=== PATIENT | male | born 1995 | race Asian ===

== ENCOUNTER 2017-05-04 10:06 | Outpatient (CLI) | payer OTHER | END 2017-05-04 10:07 | disposition home or self-care (01) | LOC: SC 10:06 | PROVIDERS: ATTEND Internal Medicine Pulmonary Disease | DX: G47.33 Obstructive sleep apnea (adult) (pediatric) (principal); G47.10 Hypersomnia, unspecified; R06.83 Snoring | CPT/HCPCS: 99203; 99212 ==

== ENCOUNTER 2018-05-03 13:18 | Outpatient (CLI) | payer OTHER | END 2018-05-03 13:19 | disposition home or self-care (01) | LOC: SC 13:18 | PROVIDERS: ATTEND Internal Medicine Pulmonary Disease | DX: R06.81 Apnea, not elsewhere classified (principal); R41.89 Other symptoms and signs involving cognitive functions and awareness; G47.10 Hypersomnia, unspecified; R06.83 Snoring | CPT/HCPCS: 99212; 99213 ==

== ENCOUNTER 2018-06-10 19:32 | Outpatient (CLI) | payer OTHER | END 2018-06-10 19:33 | disposition home or self-care (01) | LOC: SC 19:32 | PROVIDERS: ATTEND Internal Medicine Pulmonary Disease | DX: G47.33 Obstructive sleep apnea (adult) (pediatric) (principal) | CPT/HCPCS: 95810 ==

== ENCOUNTER 2018-08-23 10:21 | Outpatient (CLI) | payer OTHER | END 2018-08-23 10:22 | disposition home or self-care (01) | LOC: SC 10:21 | PROVIDERS: ATTEND Internal Medicine Pulmonary Disease | DX: G47.33 Obstructive sleep apnea (adult) (pediatric) (principal) | CPT/HCPCS: 99212; 99213 ==

== ENCOUNTER 2019-05-16 10:22 | Outpatient (CLI) | payer OTHER ==
--- NOTE | 2019-05-16 11:29 | SLEEP CARE CONSULTATION ---
Information from patient questionnaire entered by Beth Aguayo. I have reviewed and concur with the information entered by Beth Aguayo. This document represents the service I personally performed and the decisions made by me, Edgardo Blount MD, [facility]. History of Present Illness Previous diagnosis: Mild, Obstructive Sleep Apnea-Hypopnea Syndrome AHI: 6.0 Reason for follow up: first compliance Equipment type: CPAP Equipment obtained from: [place] Mask style: Nasal Prior sleep studies: Yes HPI additional information: HPI: Mr. Sosa returned today for follow up of nasal CPAP therapy. He was diagnosed to have mild obstructive sleep apnea-hypopnea syndrome. The patient wears a Respironics DreamWear nasal cushion mask. He reports using the device nightly and all through the night. The compliance report between 12/19 and 01/17/2019 shows usage in 23 nights out of the past 30 nights, 5.6 hours a night. The > 4 hour compliance rate for the past 30 days is 76.6%. He complained of no particular problem with the device such as soreness on the face, dry nose, epistaxis, nasal congestion or headache. He thinks that the pressure of 4 8 cmH2O is comfortable. On the CPAP therapy he notices improvement in his sleep quality, and that he wakes up feeling fresher in the morning and more awake/alert during the day. Almond Sleepiness Scale score is 15. The average residual AHI is 2.2; and average time in large leak per day is 26 seconds. The 90th percentile pressure is 7.0 cmH2O. CPAP Compliance Data - Data Reviewed with Patient Average duration of nightly device use: 3h 15m Compliance rate %: 46.7 Current pressure setting (cmH2O): 4-8 Humidity settin Heated hose settin Average residual AHI: 2.1 Average large leak: 16s Subjective Patient concerns: reports: aerophagia, dry mouth, nose, throat Initial Almond Sleepiness Scale score: 13 Current Almond Sleepiness Scale score: 15 Allergies and Home Medications Drug allergies reviewed: Yes Home medication list reviewed: Yes Review of Systems Review of systems same as previous: Yes Physical Exam Weight: 153 lb Weight change since last visit: +6 Impression and Plan IMPRESSION: 1. Obstructive Sleep Apnea-Hypopnea Syndrome, mild, with the patient having adequate compliance. He reports significant clinical improvement when he uses t he CPAP. The current pressure appears effective and comfortable. Overall, he is very satisfied with treatment and plans to continue with it long-term. No adjustment is necessary today except for him to try Respironics DreamWear nasal pillows because he complains of slight irritation over his upper lip. PLAN: 1. Continue with the CPAP therapy on as needed basis. 2. Try Respironics DreamWear nasal pillows. 4. Return in one year for follow up or earlier if there is any problem with the treatment. I spent 100% of this 20 minute visit face to face with the patient with greater than 50% of this was spent time counseling the patient and coordination of care.
== END 2019-05-16 10:23 | disposition home or self-care (01) ==
LOC: SC 10:22
PROVIDERS: ATTEND Internal Medicine Pulmonary Disease
DX: G47.33 Obstructive sleep apnea (adult) (pediatric) (principal)
CPT/HCPCS: 99212; 99213